=== PATIENT | female | born 2000 | race Caucasian/White ===

== ENCOUNTER 2018-06-19 06:34 | Emergency (ER) | payer BC ==
[~2018-06-19] VITALS: Ht 175.3 cm; Wt 77.1 kg
[2018-06-19 06:37] VITALS: BP 114/61
--- NOTE | 2018-06-19 06:37 | NUR ---
PT PRESENTS TO ED WITH REPORTED LEFT EYE CORNEAL TEAR. PT STATES SHE WAS AT URGENT CARE ON 06/18 AND SEEN BY URGENT CARE PHYSICIAN. SHE STATES URGENT CARE MD TOLD HER SHE HAS A LEFT EYE CORNEAL TEAR. SHE WAS GIVEN CREAM FOR HER EYE AND CONTINUES TO C/O PAIN. BOTH EYES INTACT. PT STATES RIGHT EYES DIFFICULT TO OPEN D/T LEFT EYE PAIN. LEFT EYE BLURRY WHEN OPEN. VSS. POSITIONED IN BED WITH HOB ELEVATED AND SIDE RAIL UP. ER MD AWARE. CONTINUE TO MONITOR.
--- NOTE | 2018-06-19 06:37 | NUR ---
PT AMBULATED TO ER BED 02
--- NOTE | 2018-06-19 07:19 | NUR ---
Patient appears to be resting comfortably in bed. LEFT EYE COVER WITH GAUZE. C/O PAIN & WANT PAIN MED. Vital Signs within normal limits. Respirations even and unlabored.WILL CONTINUE TO MONITOR.
--- NOTE | 2018-06-19 07:21 | NUR ---
Patient being evaluated by DR BUNN at bedside.
[2018-06-19] MEDS ORDERED: TETRACAINE HCL/PF 0.5% OPTH 4 ML BTL OP ONE (07:30)
[2018-06-19] MEDS ORDERED: HYDROcodone/APAP 5/325 MG 1 TAB TAB PO ONE (07:30)
--- NOTE | 2018-06-19 07:40 | NUR ---
Patient being evaluated by DR BUNN at bedside.
[2018-06-19 08:28] VITALS: BP 118/64
--- NOTE | 2018-06-19 08:28 | NUR ---
Patient discharged with v/s stable. Written and verbal after care instructions given and explained. Patient alert, oriented and verbalized understanding of instructions. Ambulatory with steady gait. All questions addressed prior to discharge. ID band removed. Patient advised to follow up with PMD. Rx of NORCO& TOBRAMYCIN given. Patient educated on indication of medication including possible reaction and side effects. Opportunity to ask questions provided and answered.
== END 2018-06-19 08:28 | disposition home or self-care (01) ==
LOC: MED 06:34
DX: S05.02XA Injury of conjunctiva and corneal abrasion without foreign body, left eye, initial encounter (principal); X58.XXXA Exposure to other specified factors, initial encounter; Y93.89 Activity, other specified; Y92.89 Other specified places as the place of occurrence of the external cause; Y99.8 Other external cause status
CPT/HCPCS: 99283; J7030